=== PATIENT | female | born 1970 | race Caucasian/White ===

== ENCOUNTER → 2024-03-01 | Emergency (ER) | payer BC ==
[~2024-03-01] VITALS: Ht 172.7 cm; Wt 104.3 kg
[~2024-03-01] MED LIST: KETOROLAC TROMETHAMINE 15 MG/ML VIAL ONE
[2024-03-01 14:39] LABS: BASOPHILS % (AUTO) 0.4 % (0.0-2.0); EOSINOPHILS # (AUTO) 0.1 K/uL (0.0-0.7); EOSINOPHILS % (AUTO) 0.9 % (0.0-6.0); HEMATOCRIT 37 % (33-45); HEMOGLOBIN 12.3 g/dL (11.5-14.8); LYMPHOCYTES # (AUTO) 1.7 K/uL (0.8-4.8); LYMPHOCYTES % (AUTO) 17.1 % (20.0-44.0); MEAN CORPUSCULAR HEMOGLOBIN 28 PG (26.0-33.0); MEAN CORPUSCULAR HGB CONC 34 g/dl (31.0-36.0); MEAN CORPUSCULAR VOLUME 83 fL (82-100); MONOCYTES # (AUTO) 0.6 K/uL (0.1-1.30); MONOCYTES % (AUTO) 6.5 % (2.0-12.0); NEUTROPHILS # (AUTO) 7.4 K/uL (1.8-8.9); NEUTROPHILS % (AUTO) 75.1 % (43.0-81.0); PLATELET COUNT (AUTO) 257 K/uL (150-450); RED BLOOD CELL COUNT(AUTO) 4.41 MIL/uL (4.0-5.2); RED CELL DISTRIBUTION WIDTH 16.1 % (11.5-15.0); WHITE BLOOD COUNT (AUTO) 9.8 K/uL (4.3-11.0)
[2024-03-01] MEDS: IV NS 0.9% 1,000 ML BAG IV ONE (14:42)
[2024-03-01] MEDS: KETOROLAC TROMETHAMINE 15 MG/ML VIAL IV ONE (14:45)
[2024-03-01 15:00] LABS: INR 1.16 (0.91-1.10); PARTIAL THROMBOPLASTIN TIME 25.9 SEC (24.3-34.3); PROTHROMBIN TIME 12.2 SECS (9.2-11.1)
[2024-03-01 15:06] LABS: ALBUMIN 4.1 g/dL (3.4-5.0); BILIRUBIN,DIRECT 0.1 mg/dL (0.0-0.2); BILIRUBIN,TOTAL 0.9 mg/dL (0.2-1.0); CALCIUM, SERUM 9.1 mg/dL (8.5-10.1); POTASSIUM 4.2 mmol/L (3.5-5.1)
[2024-03-01 16:07] VITALS: BP 140/65; TEMP 98; O2SAT 99
== END | disposition home or self-care (01) ==
LOC: ER 13:56
DX: K04.7 Periapical abscess without sinus (principal); R68.83 Chills (without fever); I10 Essential (primary) hypertension; E11.9 Type 2 diabetes mellitus without complications; F32.A Depression, unspecified
CPT/HCPCS: 99283; 96374; 96361; 85025; 80048; 83605; 80076; 36415; 85730; J7030; J1885